=== PATIENT | female | born 1975 ===

== ENCOUNTER 2017-06-01 13:44 | Emergency (ER) | payer SELFPAY ==
[2017-06-01 13:44] VITALS: BMI 24.5
[2017-06-01 13:55] VITALS: RESP 16; O2SAT 100
--- NOTE | 2017-06-01 14:09 | C.PDOC ---
History Of Present Illness 42 y/o female c/o LLQ and suprapubic abdominal pain, on and off, for the past 2 days. Patient reports prior history of fibroids, and notes she sometimes has similar pain with her menstrual period. Patient states she missed last period; LMP 15. Denies any vaginal bleeding or discharge, fever, vomiting, diarrhea, or urinary symptoms. Time Seen by Provider: 06/01/17 13:59 Chief Complaint (Nursing): Abdominal Pain History Per: Patient History/Exam Limitations: no limitations Onset/Duration Of Symptoms: Intermittent Episodes Current Symptoms Are (Timing): Still Present Location Of Pain/Discomfort: LLQ, Suprapubic Quality Of Discomfort: "Pain" Associated Symptoms: denies: Fever, Chills, Vomiting, Diarrhea, Urinary Symptoms Recent travel outside of the [place]: No Abnormal Vaginal Bleeding: No Past Medical History Reviewed: Historical Data, Nursing Documentation, Vital Signs Vital Signs: Last Vital Signs Temp 98.2 F 06/01/17 16:37 Pulse 84 06/01/17 16:37 Resp 16 06/01/17 16:37 BP 123/73 06/01/17 16:37 Pulse Ox 100 06/01/17 16:37 - Medical History PMH: Asthma (NEVER HOSPITALIZED), Gall Bladder Disease, Kidney Stones Surgical History: Cholecystectomy Family History: States: Unknown Family Hx - Social History Hx Alcohol Use: No Hx Substance Use: No - Immunization History Hx Tetanus Toxoid Vaccination: No Hx Influenza Vaccination: No Hx Pneumococcal Vaccination: No Review Of Systems Except As Marked, All Systems Reviewed And Found Negative. Constitutional: Negative for: Fever, Chills Cardiovascular: Negative for: Chest Pain Respiratory: Negative for: Cough, Shortness of Breath, Wheezing Gastrointestinal: Positive for: Abdominal Pain. Negative for: Vomiting, Diarrhea Genitourinary: Negative for: Vaginal Discharge, Vaginal Bleeding Skin: Negative for: Rash Physical Exam - Physical Exam Appears: Non-toxic, No Acute Distress Skin: Normal Color, Warm, Dry Head: Atraumatic, Normacephalic Oral Mucosa: Moist Chest: Symmetrical Cardiovascular: Rhythm Regular Respiratory: Normal Breath Sounds, No Rales, No Rhonchi, No Wheezing Gastrointestinal/Abdominal: Soft, Tenderness (LLQ, suprapubic ), No Guarding, No Rebound Back: Normal Inspection, No CVA Tenderness Extremity: Normal ROM, Capillary Refill (< 2 sec.) Neurological/Psych: Oriented x3, Normal Speech, Normal Cognition ED Course And Treatment - Laboratory Results Result Diagrams: 06/01/17 14:14 06/01/17 14:14 Lab Interpretation: Abnormal Interpretation Of Abnormal: BHCG 93 Urine POC: Positive O2 Sat by Pulse Oximetry: 100 (RA) Pulse Ox Interpretation: Normal - CT Scan/US Pelvic Ultrasound Other Rad Studies (CT/US): Read By Radiologist, Radiology Report Reviewed CT/US Interpretation: Accession No. : [id number]. Patient Name / ID : [id number] / [id number]. Exam Date : 06/01/2017 15:25:37 ( Approved ). Study Comment : Sex / Age : F / 42Y. Creator : Lily Lopez MD. Dictator : Lily Lopez MD. Supervisor [employer] : Career Technology Teacher : Lily Lopez MD. Approver2 : Report Date : 06/01/2017 16:44:22. My Comment : . Indication: with left lower quadrant pain. Comparison: None available. Technique: Real-time transabdominal pelvic ultrasound was performed. In addition a transvaginal pelvic ultrasound was necessary to better depict pelvic anatomy. Findings: Enlarged heterogeneous appearance of the uterus which measures approximately 12.4 x 7.6 x 8.5 cm. Two probable uterine fibroids. For example, right fundus measuring approximately 7.5 x 7.2 x 7.9 cm and left fundus measuring approximately 4.7 x 4.8 x 4.9 cm. The endometrial stripe measures approximately 8 cm in diameter. No evidence of intrauterine gestational sac. Nabothian cysts including complex nabothian cyst measuring approximately 1.6 x 1.4 x 1.1 cm. The right ovary measures 3.8 x 3.2 x 3.5 cm and contains 2.3 x 2.5 x 2.7 cm cyst. The left ovary measures 3.9 x 2.5 x 3.7 cm and contains 2.0 x 2.2 x 2.9 cm cyst. Blood flow was demonstrated to both ovaries. Impression: No evidence of intrauterine gestational sac. If indeed the patient is based on serum beta HCG values, the sonographic findings represent either: Very early IUP; embryonic demise; ectopic gestation. Follow-up with serial quantitative serum beta HCG measurements and post OBGYN follow-up as clinically indicated, since ectopic gestation cannot be excluded based only on sonographic findings. Heterogeneous enlarged appearance of the uterus. At least 2 probable uterine fibroids measuring approximately 7.9 cm ( right uterine fundus) and 4.9 cm (left uterine fundus). Bilateral ovarian cysts. Progress Note: Labs, UA ordered and reviewed. Reevaluation Time: 17:28 Reassessment Condition: Improved Disposition - Disposition Disposition: HOME/ ROUTINE Disposition Time: 17:28 Condition: STABLE Additional Instructions: Follow up with your nail feeder for repeat hormone levels and ultrasound. Instructions: (ED) Forms: [facility] (Luxembourgish) - Clinical Impression Clinical Impression: Abdominal pain affecting - Scribe Statement The provider has reviewed the documentation as recorded by the Scribe SM All medical record entries made by the Scribe were at my direction and personally dictated by me. I have reviewed the chart and agree that the record accurately reflects my personal performance of the history, physical exam, medical decision making, and the department course for this patient. I have also personally directed, reviewed, and agree with the discharge instructions and disposition.
[2017-06-01 14:20] LABS: BASO # 0.1 K/uL (0.0-0.2); BASO % 1.1 % (0.0-2.0); EOS # 0.3 K/uL (0.0-0.7); EOS % 5.1 % (0.0-4.0); HEMATOCRIT 32.1 % (34.0-47.0); LYMPH # 1.8 K/uL (1.0-4.3); LYMPH % 27.4 % (20.0-40.0); MEAN CELL VOLUME 75.1 fL (81.0-99.0); MEAN CORPUSCULAR HEMOGLOBIN 25.2 pg (27.0-31.0); MEAN CORPUSCULAR HGB CONC 33.5 g/dL (33.0-37.0); MEAN PLATELET VOLUME 7.7 fL (7.2-11.7); MONO # 0.4 K/uL (0.0-0.8); MONO % 5.9 % (0.0-10.0); RED CELL DISTRIBUTION WIDTH 15.1 % (11.5-14.5); WHITE BLOOD COUNT 6.5 K/uL (4.8-10.8)
[2017-06-01 14:26] LABS: CHLORIDE 105 mmol/L (98-107)
[2017-06-01 14:27] LABS: POTASSIUM 3.7 mmol/L (3.6-5.2); SODIUM 137 mmol/L (132-148)
[2017-06-01 14:29] LABS: BILIRUBIN,TOTAL 0.5 mg/dL (0.2-1.3); GFR AFRICAN-AMERICAN > 60
[2017-06-01 14:30] LABS: ALB/GLOB RATIO 1.3 (1.0-2.1); ALKALINE PHOSPHATASE 53 U/L (38-126); ALT/SGPT 20 U/L (9-52); AST/SGOT 20 U/L (14-36); BLOOD UREA NITROGEN 8 mg/dL (7-17); CALCIUM 8.5 mg/dl (8.6-10.4); CARBON DIOXIDE 23 mmol/L (22-30); GLUCOSE,RANDOM 85 mg/dL (65-105); TOTAL PROTEIN 7.5 g/dL (6.3-8.3)
[2017-06-01 14:32] LABS: RBC URINE < 1 /hpf (0-3); URINE BILIRUBIN NEGATIVE (NEGATIVE); URINE BLOOD NEGATIVE (NEGATIVE); URINE COLOR Yellow (YELLOW); URINE GLUCOSE (UA) NORMAL (Normal); URINE KETONE TRACE mg/dL (NEGATIVE); URINE LEUKOCYTE ESTERASE NEG Leu/uL (Negative); URINE PROTEIN NEGATIVE (NEGATIVE); WBC URINE 1 /hpf (0-5)
[2017-06-01 16:38] VITALS: BP 123/73; PULSE 84; TEMP 98.2
--- NOTE | 2017-06-01 16:45 | US ---
Indication: with left lower quadrant pain Comparison: None available. Technique: Real-time transabdominal pelvic ultrasound was performed. In addition a transvaginal pelvic ultrasound was necessary to better depict pelvic anatomy. Findings: Enlarged heterogeneous appearance of the uterus which measures approximately 12.4 x 7.6 x 8.5 cm. Two probable uterine fibroids. For example, right fundus measuring approximately 7.5 x 7.2 x 7.9 cm and left fundus measuring approximately 4.7 x 4.8 x 4.9 cm. The endometrial stripe measures approximately 8 cm in diameter. No evidence of intrauterine gestational sac. Nabothian cysts including complex nabothian cyst measuring approximately 1.6 x 1.4 x 1.1 cm. The right ovary measures 3.8 x 3.2 x 3.5 cm and contains 2.3 x 2.5 x 2.7 cm cyst. The left ovary measures 3.9 x 2.5 x 3.7 cm and contains 2.0 x 2.2 x 2.9 cm cyst. Blood flow was demonstrated to both ovaries. Impression: No evidence of intrauterine gestational sac. If indeed the patient is based on serum beta HCG values, the sonographic findings represent either: Very early IUP; embryonic demise; ectopic gestation. Follow-up with serial quantitative serum beta HCG measurements and post OBGYN follow-up as clinically indicated, since ectopic gestation cannot be excluded based only on sonographic findings. Heterogeneous enlarged appearance of the uterus. At least 2 probable uterine fibroids measuring approximately 7.9 cm (right uterine fundus) and 4.9 cm (left uterine fundus). Bilateral ovarian cysts.
== END 2017-06-01 17:38 | disposition home or self-care (01) ==
LOC: C.ER 13:44
DX: O26.91 Pregnancy related conditions, unspecified, first trimester (principal); R10.9 Unspecified abdominal pain; Z3A.00 Weeks of gestation of pregnancy not specified

== ENCOUNTER 2017-06-20 14:05 | Emergency (ER) | payer SELFPAY ==
[2017-06-20 14:05] VITALS: BMI 24.5
[2017-06-20] MEDS ORDERED: Sodium Chloride 0.9% 1,000 ML IV ONE (16:17)
[2017-06-20] MEDS ORDERED: Sodium Chloride 0.9% 1,000 ML ONE (16:33)
[2017-06-20 16:43] LABS: BASO # 0.1 K/uL (0.0-0.2); BASO % 0.9 % (0.0-2.0); EOS # 0.3 K/uL (0.0-0.7); EOS % 4.2 % (0.0-4.0); HEMATOCRIT 29.1 % (34.0-47.0); LYMPH # 1.8 K/uL (1.0-4.3); LYMPH % 23.7 % (20.0-40.0); MEAN CELL VOLUME 74.9 fL (81.0-99.0); MEAN CORPUSCULAR HEMOGLOBIN 24.9 pg (27.0-31.0); MEAN CORPUSCULAR HGB CONC 33.2 g/dL (33.0-37.0); MONO # 0.4 K/uL (0.0-0.8); MONO % 5.5 % (0.0-10.0); NRBC % 0.2 % (0.0-2.0); RED CELL DISTRIBUTION WIDTH 15.3 % (11.5-14.5); WHITE BLOOD COUNT 7.6 K/uL (4.8-10.8)
[2017-06-20 16:52] LABS: CHLORIDE 101 mmol/L (98-107); SODIUM 135 mmol/L (132-148)
[2017-06-20 16:53] LABS: POTASSIUM 3.3 mmol/L (3.6-5.2)
[2017-06-20 16:55] LABS: ALKALINE PHOSPHATASE 69 U/L (38-126); AST/SGOT 24 U/L (14-36); BILIRUBIN,TOTAL 0.3 mg/dL (0.2-1.3); BLOOD UREA NITROGEN 13 mg/dL (7-17); CALCIUM 8.4 mg/dl (8.6-10.4); CARBON DIOXIDE 23 mmol/L (22-30); GFR AFRICAN-AMERICAN > 60; GLUCOSE,RANDOM 79 mg/dL (65-105); TOTAL PROTEIN 7.8 g/dL (6.3-8.3)
[2017-06-20 16:56] LABS: ALT/SGPT 52 U/L (9-52)
[2017-06-20 17:23] LABS: RBC URINE 280 /hpf (0-3); URINE BACTERIA FEW (<OCC); URINE BILIRUBIN NEGATIVE (NEGATIVE); URINE BLOOD 3+ (NEGATIVE); URINE COLOR Amber (YELLOW); URINE GLUCOSE (UA) NORMAL (Normal); URINE KETONE NEGATIVE (NEGATIVE); URINE LEUKOCYTE ESTERASE 2+ Leu/uL (Negative); URINE PROTEIN 1+ mg/dL (NEGATIVE); URINE UROBILINOGEN NORMAL mg/dL (0.2-1.0); WBC URINE 45 /hpf (0-5)
[2017-06-20 19:17] VITALS: RESP 18
--- NOTE | 2017-06-20 21:18 | US ---
EXAM: US Pelvis Complete, Transabdominal US Pelvis, Transvaginal CLINICAL HISTORY: 42 years old, female; Pain; Pelvic pain; Prior surgery; Surgery type: ; Additional info: Pelvic pain, hcg= 60. R/O ectopic. TECHNIQUE: Real-time transabdominal and transvaginal pelvic ultrasound (complete) with image documentation. Transvaginal imaging was used for better evaluation of the endometrium and adnexa. COMPARISON: No relevant prior studies available. FINDINGS: Uterus/cervix: The uterus measures 13.9 x 6.6 x 12.7 cm. The endometrial stripe measures 19 mm in thickness. A small amount of fluid is noted within the endometrial canal. A left lateral corpus intramural fibroid measures 6.2 x 5.1 x 5. 6 cm The uterus measures . Right ovary: Right ovary measures 3.9 x 2.4 x 3.6 cm. Subcentimeter follicles present. The right ovary measures . Left ovary: The left ovary measures 4.5 x 3.3 x 4.8 cm and contains a complex follicle measuring 2.9 cm in greatest diameter. The left ovary measures . Free fluid: No free fluid. Bladder: Unremarkable as visualized. Wall is normal thickness for degree of distention. IMPRESSION: No acute findings. EXAM: US Pelvis, Transvaginal EXAM DATE/TIME: Exam ordered 06/20/2017 5:20 PM CLINICAL HISTORY: 42 years old, female; Pain; Pelvic pain; Prior surgery; Surgery type: ; Additional info: Pelvic pain, hcg= 60. R/O ectopic. TECHNIQUE: Real-time transvaginal pelvic ultrasound (complete) with image documentation. Transvaginal imaging was used for better evaluation of the endometrium and adnexa. COMPARISON: No relevant prior studies available. FINDINGS: Uterus/cervix: Nabothian cysts are present within the cervix. The endometrial stripe measures 2.4 cm. Small amount of fluid is noted in the endometrial canal. There is a left lateral corpus intramural fibroid measuring 652 5.3 x 6.1 x 6.2 cm. A second fibroid is noted towards the right measuring 7 x 6.8 x 7.2 cm. Right ovary: The right ovary measures 3.4 x 2.5 x 3.2 cm and contains a 1.4 cm follicle. Blood flow is seen in the right ovary on color Doppler examination. Left ovary: The left ovary measures 4.4 x 2.0 x 4 cm and contains a complex follicle measuring 3.1 cm in maximum diameter. Blood flow is seen in the left or right on color Doppler examination. Free fluid: A trace amount of fluid seen around the right ovary. Bladder: Empty bladder which cannot be evaluated with this probe. IMPRESSION: 1. No evidence of an intrauterine . The endometrial stripe is abnormally thickened and there is a small amount of fluid in the endometrial canal. Differential diagnostic considerations include normal early intrauterine , recent or ectopic . Note is made of the report from the previous ultrasound performed 3 weeks ago. Serial beta-hCG measurement should be performed. 2. Fibroids.
--- NOTE | 2017-06-20 22:51 | C.PDOC ---
Time Seen by Provider: 06/20/17 16:02 Chief Complaint (Nursing): Female Genitourinary History Per: Patient Onset/Duration Of Symptoms: Days (about 1 month) Current Symptoms Are (Timing): Still Present Severity: Moderate Quality Of Discomfort: Cramping, "Pain" Alleviating Factors: None Additional History Per: Prior Records Abnormal Vaginal Bleeding: Yes Past Medical History Reviewed: Historical Data, Nursing Documentation, Vital Signs Vital Signs: Last Vital Signs Temp 98.1 F 06/20/17 21:03 Pulse 86 06/20/17 21:03 Resp 18 06/20/17 21:03 BP 124/75 06/20/17 21:03 Pulse Ox 99 06/20/17 21:03 - Medical History PMH: Asthma (NEVER HOSPITALIZED), Gall Bladder Disease, Kidney Stones Surgical History: Cholecystectomy Family History: States: Unknown Family Hx - Social History Hx Alcohol Use: No Hx Substance Use: No - Immunization History Hx Tetanus Toxoid Vaccination: No Hx Influenza Vaccination: Yes Hx Pneumococcal Vaccination: No Review Of Systems Except As Marked, All Systems Reviewed And Found Negative. Constitutional: Negative for: Fever Cardiovascular: Negative for: Chest Pain Respiratory: Negative for: Shortness of Breath Gastrointestinal: Negative for: Vomiting Genitourinary: Positive for: Vaginal Bleeding, Pelvic Pain Musculoskeletal: Negative for: Neck Pain, Back Pain Skin: Negative for: Rash Neurological: Negative for: Weakness, Numbness Physical Exam - Physical Exam Appears: Non-toxic, No Acute Distress Skin: Normal Color, Warm, Dry, No Rash Head: Atraumatic, Normacephalic Eye(s): bilateral: PERRL, EOMI Neck: Normal ROM, Supple Cardiovascular: Rhythm Regular Respiratory: Normal Breath Sounds, No Accessory Muscle Use Gastrointestinal/Abdominal: Soft, Tenderness (suprapubic), No Guarding, No Rebound Back: No CVA Tenderness Extremity: Normal ROM Neurological/Psych: Oriented x3, Normal Motor, Normal Sensation ED Course And Treatment - Laboratory Results Result Diagrams: 06/20/17 16:37 06/20/17 16:37 Lab Interpretation: Abnormal Interpretation Of Abnormal: Mild anemia. Beta hcg is low, but still positive. O2 Sat by Pulse Oximetry: 99 Pulse Ox Interpretation: Normal - CT Scan/US Pelvic US Other Rad Studies (CT/US): Read By Radiologist, Radiology Report Reviewed CT/US Interpretation: IMPRESSION: 1. No evidence of an intrauterine . The endometrial stripe is. abnormally thickened and there is a small amount of fluid in the endometrial. canal. Differential diagnostic considerations include normal early intrauterine. , recent or ectopic . Note is made of the report. from the previous ultrasound performed 3 weeks ago. Serial beta-hCG measurement. should be performed. . 2. Fibroids. Progress - Interventions Interventions:: Observation, Intravenous fluid - Medications Administered Intravenous: NSAID - Data Reviewed Data Reviewed: Lab, Diagnostic imaging, Old records - Patient Status Patient status: Partially improved - Continuity of Care Discussed patient case with:: Patient, Family-HIPPA compliant, ED Nurse Discussed pt. case with senior sustainability consultant/specialty: Obstetrics/Gynecology - Patient Plan Patient Plan: Discharge Disposition Discussed With : Sonia Paredes Comment: She evaluated pt in the ED. She arranged for pt to f/up with Dr. García in 2 days. Doctor Will See Patient In The: ED Counseled Patient/Family Regarding: Studies Performed, Diagnosis, Need For Followup, Rx Given - Disposition Referrals: Jerry García [Staff Provider] - Disposition: HOME/ ROUTINE Disposition Time: 22:52 Condition: FAIR Additional Instructions: Follow up with Dr. García this Tuesday morning for further evaluation and treatment. Return to the ER if you develop fever, vomiting, dizziness, worsening of symptoms or if you have any other concerns. Prescriptions: Ketorolac Tromethamine [Toradol] 10 mg PO Q6 PRN #30 tab PRN Reason: Pain, Moderate (4-7) Forms: [facility] (K[place]i), General Discharge Instructions - Clinical Impression Clinical Impression: Pelvic pain, Vaginal bleeding, abnormal, Abnormal human chorionic gonadotropin (hCG)
[2017-06-20 23:08] VITALS: BP 120/79; PULSE 85; TEMP 97.8; O2SAT 100
--- NOTE | 2017-06-20 23:26 | CP.PCM.CON ---
History of Present Illness - History of Present Illness History of Present Illness: Asked by Dr. Fuentes to evaluate patient: persistently low quant HCG level, abdominal pain Patient received in [facility] 7A; ambulated to [facility] (accompanied by common-law ) 42 y.o. , LNMP 04/26/17 x 5 days presents to E.D. today for evaluation of persistent LLQ pain and vaginal bleeding. HPI: 06/01/17 presented to E.D. at [facility] for evaluation of 1-2 weeks LLQ pain. Incidental finding of positive preg test and low quant HCG level ( 93.16). Possible early ; discharged home with instructions to follow up with regular SENIOR SUSTAINABILITY ADVISOR provider (appointment made for 06/16/17). LLQ pain continued. 06/14/17, onset of vaginal bleeding -"heavy like a period". Went to E.D. at [facility] - presumed spontaneous . Discharged home on methergine p.o. Q 6 hours x 3 doses; motrin 600 mg po Q 6 hr, PRN and doxycycline. Saw director of food and nutrition services 06/16 as scheduled: advised to complete antibiotics. Per patient, pain and vaginal bleeding continued through the weekend (06/18/17 and ), with pain worsening to a pain scale of 10/10 - no relief with motrin as prescribed; still bleeding like a period. "I just stayed home and dealt with it "; however, today decided to come for evaluation. In E.D. received toradol 30 mg IVP x 1 at 1436 hours: pain scale now 6/10. States vaginal bleeding has slowed down. Denies nausea, vomiting. Ultrasound performed: uterus 14 x 6.6 x 13 cm, endometrial stripe 1.9 cm, with small amount of fluid in endometrial canal. Left lateral intramural fibroid 6.2 x 5.1 x 5.6 cm. Right ovary: 3.9 x 2.4 x 3.6 cm. Left ovary: 4.5 x 3.3 x 4.8 cm, with 2.9cm complex follicle. No free fluid. Impression: 1) No IUP. "Abnormally" thickened endometrial stripe with small amount of fluid. 2) fibroids P Ob: 1) C/S x 1996, at 34 weeks, female, 4 lb, decreased FHR; [facility] - triggered by acute cholecystitis. No other complications. in NICU x 21 days ([facility]). 2) , 2002, male, 7lb 6oz, [facility], no complications. Spont ab x 2, between 1996 and 2002, each approx 7 weeks, D&C x 1. P SENIOR SUSTAINABILITY ADVISOR: 12 x monthly x 3. Diagnosed with leiomyoma 1 year ago. No h/o STIs or abnormal Pap. Last Pap 10/2016 ([facility]). Most recent mammogram 06/2016 - reportedly negative. Patient recalls having endometrial biopsy by Dr. Sera Ventura 2015 - reportedly negative. PMH: h/o asthma: diagnosed age 19. Never intubated; last attack 1-2 years ago. PSH: C/S x 1, D&C x 1; 1997, laparoscopic cholecystectomy NKDA Meds: doxycycline 100 mg po BID Soc Hx: denies tobacco, illicit drug or EtOH use. With "common law" x 9 years. Works in the house cleaning services Fam Hx: Mother age 58 - cervical cancer. Father alive 78 - no med issues. 1 mat aunt - stomach cancer Review of Systems - Review of Systems All systems: reviewed and no additional remarkable complaints except - Gastrointestinal Gastrointestinal: As Per HPI, Abdominal Pain - Reproductive: Female Reproductive:Female: As Per HPI Past Patient History - Infectious Disease Hx of Infectious Diseases: None - Past Medical History & Family History Past Medical History?: Yes Pertinent Family History: Maternal aunt - stomach cancer - Past Social History Smoking Status: Never Smoked Alcohol: None Drugs: Denies Home Situation {Lives}: With Family - CARDIAC Hx Cardiac Disorders: No - PULMONARY Hx Asthma: Yes (NEVER HOSPITALIZED) - NEUROLOGICAL Hx Neurological Disorder: No - HEENT Hx HEENT Problems: No - RENAL Hx Kidney Stones: Yes - ENDOCRINE/METABOLIC Hx Endocrine Disorders: No - HEMATOLOGICAL/ONCOLOGICAL Hx Blood Disorders: No - INTEGUMENTARY Hx Dermatological Problems: No - MUSCULOSKELETAL/RHEUMATOLOGICAL Hx Musculoskeletal Disorders: No - GASTROINTESTINAL Hx Gall Bladder Disease: Yes - GENITOURINARY/GYNECOLOGICAL Hx Reproductive Disorders: Yes (uterine fibroids) LMP:: 04/26/2017 : 4 Para: 2 Termination of : 2 - PSYCHIATRIC Hx Psychophysiologic Disorder: No Hx Substance Use: No - SURGICAL HISTORY Hx Section: Yes (1996) Hx Cholecystectomy: Yes (1997) Hx Dilation and Curettage: Yes - ANESTHESIA Hx Anesthesia: Yes Hx Anesthesia Reactions: No Hx Malignant Hyperthermia: No Meds Home Medications: Home Medication List Medication Instructions Recorded Confirmed Type Ketorolac Tromethamine [Toradol] 10 mg PO Q6 PRN #30 tab 06/20/17 Rx Allergies/Adverse Reactions: Allergies Allergy/AdvReac Type Severity Reaction Status Date / Time No Known Allergies Allergy Verified 06/15/17 16:42 Physical Exam - Constitutional Appears: Well, No Acute Distress - Head Exam Head Exam: ATRAUMATIC, NORMAL INSPECTION, NORMOCEPHALIC - Eye Exam Eye Exam: Normal appearance - ENT Exam ENT Exam: Mucous Membranes Moist - Neck Exam Neck exam: Positive for: Full Rom - Respiratory Exam Respiratory Exam: NORMAL BREATHING PATTERN - Cardiovascular Exam Cardiovascular Exam: REGULAR RHYTHM - GI/Abdominal Exam GI & Abdominal Exam: Normal Bowel Sounds, Tenderness Additional comments: (+) LLQ tenderness; no rebound tenderness - Exam Additional comments: Bimanual exam: (+) fullness anterior to uterus, firm, tender midline to left adnexal region. Uterus approximately 14 weeks, anteverted, firm, minimally mobile. (+) left adnexal fullness; normal right adnexa. - Extremities Exam Extremities exam: Positive for: full ROM, normal inspection - Back Exam Back exam: NORMAL INSPECTION - Neurological Exam Neurological exam: Alert, Normal Gait, Oriented x3 - Psychiatric Exam Psychiatric exam: Normal Affect, Normal Mood - Skin Skin Exam: Dry, Intact, Normal Color, Warm Results - Vital Signs Recent Vital Signs: Last Vital Signs Temp 98.1 F 06/20/17 21:03 Pulse 86 06/20/17 21:03 Resp 18 06/20/17 21:03 BP 124/75 06/20/17 21:03 Pulse Ox 99 06/20/17 22:53 - Labs Result Diagrams: 06/20/17 16:37 06/20/17 16:37 Labs: Laboratory Results - last 24 hr 06/20/17 06/20/17 06/20/17 16:37 16:37 16:37 WBC 7.6 RBC 3.88 Hgb 9.7 L Hct 29.1 L MCV 74.9 L MCH 24.9 L MCHC 33.2 RDW 15.3 H Plt Count 312 D MPV 8.0 Neut % (Auto) 65.7 Lymph % (Auto) 23.7 [place] % (Auto) 5.5 Eos % (Auto) 4.2 H Baso % (Auto) 0.9 Neut # 5.0 Lymph # 1.8 [place] # 0.4 Eos # 0.3 Baso # 0.1 PT 10.8 INR 1.0 APTT 26 Sodium Potassium Chloride Carbon Dioxide Anion Gap BUN Creatinine Est GFR ( Amer) Est GFR (Non-Af Amer) Random Glucose Calcium Total Bilirubin AST ALT Alkaline Phosphatase Total Protein Albumin Globulin Albumin/Globulin Ratio Beta HCG, Quant Urine Color Ana Urine Clarity Hazy Urine pH 5.0 Ur Specific [place] 1.013 Urine Protein 1+ H Urine Glucose (UA) Normal Urine Ketones Negative Urine Blood 3+ H Urine Nitrate Negative Urine Bilirubin Negative Urine Urobilinogen Normal Ur Leukocyte Esterase 2+ H Urine WBC (Auto) 45 H Urine RBC (Auto) 280 H Ur Squamous Epith Cells 3 Urine Bacteria Few H Urine HCG, Qual Negative Blood Type Antibody Screen 06/20/17 06/20/17 16:37 16:37 WBC RBC Hgb Hct MCV MCH MCHC RDW Plt Count MPV Neut % (Auto) Lymph % (Auto) [place] % (Auto) Eos % (Auto) Baso % (Auto) Neut # Lymph # [place] # Eos # Baso # PT INR APTT Sodium 135 Potassium 3.3 L Chloride 101 Carbon Dioxide 23 Anion Gap 14 BUN 13 Creatinine 0.4 L Est GFR ( Amer) > 60 Est GFR (Non-Af Amer) > 60 Random Glucose 79 Calcium 8.4 L Total Bilirubin 0.3 AST 24 ALT 52 D Alkaline Phosphatase 69 Total Protein 7.8 Albumin 3.9 Globulin 3.9 Albumin/Globulin Ratio 1.0 Beta HCG, Quant 60.36 Urine Color Urine Clarity Urine pH Ur Specific [place] Urine Protein Urine Glucose (UA) Urine Ketones Urine Blood Urine Nitrate Urine Bilirubin Urine Urobilinogen Ur Leukocyte Esterase Urine WBC (Auto) Urine RBC (Auto) Ur Squamous Epith Cells Urine Bacteria Urine HCG, Qual Blood Type B POSITIVE Antibody Screen Negative Assessment & Plan - Assessment and Plan (Free Text) Assessment: Labs, and ultrasound images and report reviewed by me personally. 42 y.o. P2022, persistently low quant HCG level with negative urine test. Spontaneous a possibility; however, in light of negative urine test, the presence of heterophilic antibody is more likely. This entity is a macromolecule which mimics HCG activity, with symptoms of . This was explained to the patient to the best of my ability. She expressed an understanding and is somewhat relieved. LLQ pain, coincides with location of leiomyoma; possible degenerating. Patient is hemodynamically stable. Plan: 1) Discharge patient ome 2) Continue toradol p.o. for pain 3) Complete doxycycline 4) Follow up, Dr. García, [facility], 06/22/17 at 8:30 am Thank you for the pleasure of this consultation - Date & Time Date: 06/20/17 Time: 11:00
== END 2017-06-20 23:08 | disposition home or self-care (01) ==
LOC: C.ER 14:05
DX: R10.2 Pelvic and perineal pain (principal); N93.9 Abnormal uterine and vaginal bleeding, unspecified
CPT/HCPCS: 76830; 76856; 80053; 81001; 84702; 84703; 85025; 85610; 85730; 86850; 86900; 96361; 96374; 99285; J1885; J7040

== ENCOUNTER 2017-06-24 11:37 | Emergency (ER) | payer SELFPAY ==
[2017-06-24 11:37] VITALS: BMI 24.5
[2017-06-24 12:10] VITALS: TEMP 98.7; O2SAT 100
[2017-06-24] MEDS ORDERED: Oxycodone/Acetaminophen 5/325 mg Tab PO STA ×2 (13:25→13:26)
[2017-06-24] MEDS ORDERED: Oxycodone/Acetaminophen 5/325 mg Tab ONE (13:29)
[2017-06-24 13:35] LABS: BASO # 0.1 K/uL (0.0-0.2); BASO % 1.9 % (0.0-2.0); EOS # 0.4 K/uL (0.0-0.7); EOS % 6.5 % (0.0-4.0); HEMATOCRIT 29.8 % (34.0-47.0); LYMPH # 1.5 K/uL (1.0-4.3); LYMPH % 25.4 % (20.0-40.0); MEAN CELL VOLUME 75.1 fL (81.0-99.0); MEAN CORPUSCULAR HEMOGLOBIN 24.6 pg (27.0-31.0); MEAN CORPUSCULAR HGB CONC 32.7 g/dL (33.0-37.0); MEAN PLATELET VOLUME 7.9 fL (7.2-11.7); MONO # 0.3 K/uL (0.0-0.8); MONO % 5.2 % (0.0-10.0); RED CELL DISTRIBUTION WIDTH 15.3 % (11.5-14.5)
[2017-06-24 13:43] LABS: CHLORIDE 103 mmol/L (98-107); POTASSIUM 3.6 mmol/L (3.6-5.2); SODIUM 137 mmol/L (132-148)
[2017-06-24 13:46] LABS: BLOOD UREA NITROGEN 11 mg/dL (7-17); CALCIUM 8.4 mg/dl (8.6-10.4); CARBON DIOXIDE 25 mmol/L (22-30); GFR AFRICAN-AMERICAN > 60; GLUCOSE,RANDOM 76 mg/dL (65-105)
--- NOTE | 2017-06-24 14:50 | C.PDOC ---
History Of Present Illness 42 y/o female presents to ED for evaluation of pain, swelling, and redness to right inner arm. Patient states that she was seen here 4 days ago, and had an IV line placed to administer pain medication. Notes that pain is worse when she straightens her arm. Otherwise, denies change in sensation, or fever. Time Seen by Provider: 06/24/17 12:12 Chief Complaint (Nursing): Abnormal Skin Integrity History Per: Patient History/Exam Limitations: no limitations Onset/Duration Of Symptoms: Days Current Symptoms Are (Timing): Still Present Location Of Injury: Right: Arm Quality Of Symptoms: Painful Recent travel outside of the [place]: No Additional History Per: Patient Past Medical History Reviewed: Historical Data, Nursing Documentation, Vital Signs Vital Signs: Last Vital Signs Temp 98.7 F 06/24/17 15:30 Pulse 67 06/24/17 15:30 Resp 16 06/24/17 15:30 BP 129/79 06/24/17 15:30 Pulse Ox 100 06/24/17 17:28 - Medical History PMH: Asthma (NEVER HOSPITALIZED), Gall Bladder Disease, Kidney Stones, Chronic Kidney Disease Surgical History: Cholecystectomy (1997) Family History: States: Unknown Family Hx - Social History Hx Alcohol Use: No Hx Substance Use: No - Immunization History Hx Tetanus Toxoid Vaccination: No Hx Influenza Vaccination: Yes Hx Pneumococcal Vaccination: No Review Of Systems Except As Marked, All Systems Reviewed And Found Negative. Constitutional: Negative for: Fever, Chills Musculoskeletal: Positive for: Arm Pain (right inner arm pain and swelling). Negative for: Hand Pain Skin: Negative for: Rash, Bruising Neurological: Negative for: Weakness, Numbness Physical Exam - Physical Exam Appears: Non-toxic, No Acute Distress Skin: Warm, Dry, Other (tender and palpable cord to right inner arm, with erythema) Head: Atraumatic, Normacephalic Eye(s): bilateral: Normal Inspection Oral Mucosa: Moist Extremity: Normal ROM (FROM of right arm), Tenderness (right inner arm), Capillary Refill (<2 secs.), No Deformity, No Swelling Extremity: Bilateral: Atraumatic Pulses: Left Radial: Normal, Right Radial: Normal Neurological/Psych: Oriented x3, Normal Speech, Normal Motor, Normal Sensation ED Course And Treatment - Laboratory Results Result Diagrams: 06/24/17 13:23 06/24/17 13:23 O2 Sat by Pulse Oximetry: 100 (RA) Pulse Ox Interpretation: Normal Progress Note: Blood work, venous duplex scan of right upper extremity ordered and reviewed. Patient was given Percocet. On re-eval, patient is resting comfortably, and is in no acute distress. Venous scan shows superficial phlebitis in the right cephalic and basilic veins, no evidence of DVT. Pt is being discharged home, with instructions to follow up with physician/clinic in 1 -2 days for further evaluation. Disposition - Disposition Disposition: HOME/ ROUTINE Disposition Time: 15:19 Condition: STABLE Additional Instructions: Follow up with your PMD within 1-2 days. Return to ED if feel worse. Prescriptions: Ibuprofen [Motrin Tab] 600 mg PO Q8 #30 tab Instructions: Superficial Thrombophlebitis (ED) Forms: [employer] (Mauritanian) - Clinical Impression Clinical Impression: Superficial phlebitis of arm - PA / RAND BUTTER / Resident Statement MD/DO has reviewed & agrees with the documentation as recorded. - Scribe Statement The provider has reviewed the documentation as recorded by the Ieshaibelias Walker All medical record entries made by the Lou were at my direction and personally dictated by me. I have reviewed the chart and agree that the record accurately reflects my personal performance of the history, physical exam, medical decision making, and the department course for this patient. I have also personally directed, reviewed, and agree with the discharge instructions and disposition.
[2017-06-24 15:38] VITALS: BP 129/79; PULSE 67; RESP 16
--- NOTE | 2017-06-27 12:09 | VASCLAB ---
PROCEDURE: Right Upper Extremity Venous Duplex Exam HISTORY: right arm pain/erythema after IV 3 days ago PRIORS: None. TECHNIQUE: Right upper extremity, internal jugular, subclavian, axillary, brachial, ulnar, radial, basilic and upper cephalic veins were evaluated. Flow was assessed with color Doppler, compressibility, assessment of phasic flow and augmentation response. Report prepared by KYLIE Edmonds, RVT FINDINGS: RIGHT: 1. Internal Jugular: 1.1. Compressibility - Fully compressible: Thrombus - None : Flow - Phasic: Augmentation -Normal: Reflux - None. 2. Subclavian: 2.1. Compressibility - Fully compressible: Thrombus - None : Flow - Phasic: Augmentation -Normal: Reflux - None. 3. Axillary: 3.1. Compressibility - Fully compressible: Thrombus - None : Flow - Phasic: Augmentation -Normal: Reflux - None. 4. Brachial: 4.1. Compressibility - Fully compressible: Thrombus - None: Flow - Phasic: Augmentation -Normal: Reflux - None. 5. Ulnar: 5.1. Compressibility - Fully compressible: Thrombus - None: Flow - Phasic: Augmentation -Normal: Reflux - None. 6. Radial: 6.1. Compressibility - Fully compressible: Thrombus - None: Flow - Phasic: Augmentation - Normal: Reflux - None. 7. Cephalic: 7.1. Compressibility - Partial: Thrombus - Acute: Flow - Absent : Augmentation -None: Reflux - None. 8. Basilic: 8.1. Compressibility - Partial: Thrombus - Acute: Flow - Absent : Augmentation -None: Reflux - None. OTHER FINDINGS: NINOSKA Miranda notified about the findings. IMPRESSION: Right: Acute thrombosis of the right cephalic and basilic veins with severe reduction of the venous return. No evidence of vein thrombosis of the right upper extremity deep veins with excellent venous flow. Normal valve function noted of the right side. Normal venous flow noted in the left internal jugular and left subclavian veins.
== END 2017-06-24 15:37 | disposition home or self-care (01) ==
LOC: C.ER 11:37
DX: I80.8 Phlebitis and thrombophlebitis of other sites (principal)